=== PATIENT | female | born 1960 | race Caucasian/White ===

== ENCOUNTER 2025-08-08 06:47 | Inpatient (IN) | payer OTHER ==
[~2025-08-08] VITALS: Ht 149.9 cm; Wt 52.2 kg
[~2025-08-08 06:47] MED LIST: ATIVAN1 MG PO; CARVEDILOL6.25 MG PO; MOTRIN800 MG PO; PROZAC20 MG PO; ZOCOR20 MG PO
[2025-08-08 06:49] VITALS: BP 139/95
[2025-08-08] MEDS ORDERED: IOHEXOL 300 MG/ML 100 ML VIAL IV ONE (07:10)
[2025-08-08] MEDS ORDERED: Ondansetron Hydrochloride 4 MG/2 ML VIAL IV ONE (07:20)
[2025-08-08 07:25] LABS: MEAN CELL VOLUME 83.7 fl (81.0-99.0); MEAN CORPUSCULAR HGB 28.2 pg (27.0-31.0); MEAN PLATELET VOLUME 12.9 fl (9.6-12.3); NUCLEATED RED BLOOD CELL 0.0 % (0.0-0.0); NUCLEATED RED BLOOD CELL 0.0 10*3/uL (0.0-0.0); PLATELET COUNT AUTOMATED 388 10*3/uL (130-400); RED CELL DISTRI WIDTH 14.0 % (0-14.5)
[2025-08-08 07:42] LABS: BUN 10 mg/dl (9-23); SGPT/ALT 11 U/L (5-49)
[2025-08-08 07:43] LABS: MANUAL DIFF REFLEX YES
[2025-08-08 07:47] LABS: PLATELET SUFFICIENCY NORMAL (NORMAL)
[2025-08-08] MEDS ORDERED: POTASSIUM CHLO10 ME4 PO (12:22)
[2025-08-08] MEDS ORDERED: MAGNESIUM OXID400 MG PO (12:22)
[2025-08-08 12:45] VITALS: BP 122/80
[2025-08-08] MEDS ORDERED: DOCUSATE SOD100 MG PO (12:59)
[2025-08-08] MEDS ORDERED: TEMAZEPAM 15 MG CAP PO PRN (13:10)
[2025-08-08] MEDS ORDERED: BISACODYL 10 MG SUPP R PRN (13:10)
[2025-08-08] MEDS ORDERED: BISACODYL 5 MG TAB PO PRN (13:10)
[2025-08-08] MEDS ORDERED: ACETAMINOPHEN 325 MG TAB PO PRN (13:10)
[2025-08-08] MEDS ORDERED: Ondansetron Hydrochloride 4 MG/2 ML VIAL IV PRN (13:10)
[2025-08-08] MEDS ORDERED: POTASSIUM CHLORIDE 20 MEQ TAB PO ONE (13:30)
[2025-08-08] MEDS ORDERED: Acetaminophen/Oxycodone 5 MG/325 MG TABLET PO PRN (13:35)
[2025-08-08] MEDS ORDERED: LORazepam 1 MG TAB PO SCH (14:00)
[2025-08-08 16:00] VITALS: BP 107/42; BP 109/61
[2025-08-08] MEDS ORDERED: DOCUSATE SODIUM 100 MG CAP PO SCH (18:00)
[2025-08-08 20:00] VITALS: BP 112/77
[2025-08-09] VITALS: BP 118/86
[2025-08-09 06:19] LABS: MEAN CELL VOLUME 86.5 fl (81.0-99.0); MEAN CORPUSCULAR HGB 28.9 pg (27.0-31.0); MEAN PLATELET VOLUME 12.9 fl (9.6-12.3); NUCLEATED RED BLOOD CELL 0.0 % (0.0-0.0); NUCLEATED RED BLOOD CELL 0.0 10*3/uL (0.0-0.0); PLATELET COUNT AUTOMATED 353 10*3/uL (130-400); RED CELL DISTRI WIDTH 13.9 % (0-14.5)
[2025-08-09 06:21] LABS: BUN 9 mg/dl (9-23); LDL CHOLESTEROL 65 mg/dL (9-159); SGPT/ALT 114 U/L (5-49)
[2025-08-09 06:47] LABS: ACT PARTIAL THROMBO TIME 28.2 SECONDS (20.0-32.1)
[2025-08-09 07:12] LABS: MANUAL DIFF REFLEX YES
[2025-08-09 07:22] LABS: PLATELET SUFFICIENCY NORMAL (NORMAL)
[2025-08-09] MEDS ORDERED: OXYCODONE HCL (IR) 5 MG TAB PO PRN (07:55)
[2025-08-09 08:00] VITALS: BP 126/87
[2025-08-09] MEDS ORDERED: SODIUM PHOSPHATE 30 MMOL in SODIUM CHLORIDE 0.9% 500 ML IV ONE (08:30)
[2025-08-09] MEDS ORDERED: CARVEDILOL 6.25 MG TAB PO SCH (10:00)
[2025-08-09] MEDS ORDERED: SIMVASTATIN 20 MG TAB PO SCH (10:00)
[2025-08-09] MEDS ORDERED: POTASSIUM CHLORIDE 10 MEQ TAB PO SCH (10:00)
[2025-08-09] MEDS ORDERED: MAGNESIUM OXIDE 400 MG TAB PO SCH (10:00)
[2025-08-09 12:00] VITALS: BP 112/71
[2025-08-09 16:00] VITALS: BP 111/75
[2025-08-09 20:00] VITALS: BP 119/80
[2025-08-09] MEDS ORDERED: IOHEXOL 300 MG/ML 100 ML VIAL IV ONE (22:05)
[2025-08-09] MEDS ORDERED: IOHEXOL 300 MG/ML 100 ML VIAL ONE (22:31)
[2025-08-09] MEDS ORDERED: LACTULOSE 20 GM/30 ML UDC PO SCH (23:10)
[2025-08-10] MEDS ORDERED: Promethazine Hydrochloride 25 MG TAB PO ONE (00:40)
[2025-08-10 06:37] LABS: MEAN CORPUSCULAR HGB 27.7 pg (27.0-31.0); MEAN PLATELET VOLUME 13.3 fl (9.6-12.3); NUCLEATED RED BLOOD CELL 0.0 % (0.0-0.0); NUCLEATED RED BLOOD CELL 0.0 10*3/uL (0.0-0.0); PLATELET COUNT AUTOMATED 313 10*3/uL (130-400); RED CELL DISTRI WIDTH 14.1 % (0-14.5)
[2025-08-10 06:57] LABS: BUN 11 mg/dl (9-23); SGPT/ALT 95 U/L (5-49)
[2025-08-10 07:09] LABS: MANUAL DIFF REFLEX YES; MEAN CELL VOLUME 83.4 fl (81.0-99.0)
[2025-08-10 07:14] LABS: PLATELET SUFFICIENCY NORMAL (NORMAL)
[2025-08-10 08:00] VITALS: BP 130/86
[2025-08-10 12:00] VITALS: BP 158/91
[2025-08-10] MEDS ORDERED: POTASSIUM CHLORIDE 20 MEQ TAB PO ONE (12:20)
[2025-08-10] MEDS ORDERED: Ondansetron Hydrochloride 4 MG/2 ML VIAL IV PRN (12:20)
[2025-08-10] MEDS ORDERED: SODIUM CHLORIDE 0.9% 1,000 ML IV ONE (12:20)
[2025-08-10] MEDS ORDERED: FOLIC ACID 1 MG TAB PO SCH (12:25)
[2025-08-10] MEDS ORDERED: Ondansetron Hydrochloride 4 MG/2 ML VIAL IV SCH (14:00)
[2025-08-10 16:00] VITALS: BP 131/78
[2025-08-10] MEDS ORDERED: LACTULOSE 20 GM/30 ML UDC PO SCH (18:00)
[2025-08-10] MEDS ORDERED: POTASSIUM CHLORIDE 20 MEQ TAB PO SCH (18:00)
[2025-08-10 20:00] VITALS: BP 146/80
[2025-08-11] VITALS: BP 142/78
[2025-08-11 06:19] LABS: MEAN CELL VOLUME 83.4 fl (81.0-99.0); MEAN CORPUSCULAR HGB 27.6 pg (27.0-31.0); MEAN PLATELET VOLUME 12.8 fl (9.6-12.3); NUCLEATED RED BLOOD CELL 0.0 % (0.0-0.0); NUCLEATED RED BLOOD CELL 0.0 10*3/uL (0.0-0.0); PLATELET COUNT AUTOMATED 270 10*3/uL (130-400); RED CELL DISTRI WIDTH 14.1 % (0-14.5)
[2025-08-11 06:22] LABS: MANUAL DIFF REFLEX YES
[2025-08-11 06:34] LABS: BUN 8 mg/dl (9-23); SGPT/ALT 58 U/L (5-49)
[2025-08-11 07:12] LABS: PLATELET SUFFICIENCY NORMAL (NORMAL)
[2025-08-11 08:00] VITALS: BP 160/88
[2025-08-11 08:44] LABS: MEAN CELL VOLUME 83.7 fl (81.0-99.0); MEAN CORPUSCULAR HGB 27.3 pg (27.0-31.0); MEAN PLATELET VOLUME 12.1 fl (9.6-12.3); NUCLEATED RED BLOOD CELL 0.0 % (0.0-0.0); NUCLEATED RED BLOOD CELL 0.0 10*3/uL (0.0-0.0); PLATELET COUNT AUTOMATED 264 10*3/uL (130-400); RED CELL DISTRI WIDTH 14.0 % (0-14.5)
[2025-08-11 08:46] LABS: MANUAL DIFF REFLEX YES
[2025-08-11 09:05] LABS: PLATELET SUFFICIENCY NORMAL (NORMAL)
[2025-08-11 12:00] VITALS: BP 130/83
[2025-08-11 16:00] VITALS: BP 158/82
[2025-08-11 20:00] VITALS: BP 156/95
[2025-08-12] VITALS: BP 158/92
[2025-08-12 06:16] LABS: MEAN CELL VOLUME 85.7 fl (81.0-99.0); MEAN CORPUSCULAR HGB 28.6 pg (27.0-31.0); MEAN PLATELET VOLUME 12.3 fl (9.6-12.3); NUCLEATED RED BLOOD CELL 0.0 % (0.0-0.0); NUCLEATED RED BLOOD CELL 0.0 10*3/uL (0.0-0.0); PLATELET COUNT AUTOMATED 209 10*3/uL (130-400); RED CELL DISTRI WIDTH 13.8 % (0-14.5)
[2025-08-12 06:19] LABS: MANUAL DIFF REFLEX YES
[2025-08-12 06:36] LABS: BUN 8 mg/dl (9-23); SGPT/ALT 41 U/L (5-49)
[2025-08-12 08:00] VITALS: BP 147/86
[2025-08-12 08:20] LABS: PLATELET SUFFICIENCY NORMAL (NORMAL)
[2025-08-12 12:00] VITALS: BP 139/89
[2025-08-12 16:00] VITALS: BP 144/84
[2025-08-12 20:00] VITALS: BP 119/81
[2025-08-13] VITALS: BP 140/86
[2025-08-13 06:10] LABS: MEAN CELL VOLUME 85.3 fl (81.0-99.0); MEAN CORPUSCULAR HGB 27.5 pg (27.0-31.0); MEAN PLATELET VOLUME 12.4 fl (9.6-12.3); NUCLEATED RED BLOOD CELL 0.0 % (0.0-0.0); NUCLEATED RED BLOOD CELL 0.0 10*3/uL (0.0-0.0); PLATELET COUNT AUTOMATED 191 10*3/uL (130-400); RED CELL DISTRI WIDTH 13.8 % (0-14.5)
[2025-08-13 06:27] LABS: MANUAL DIFF REFLEX YES
[2025-08-13 07:15] LABS: BASOPHILS 1 % (0-1); BUN 7 mg/dl (9-23); LDH 511 U/L (120-246); PLATELET SUFFICIENCY NORMAL (NORMAL)
[2025-08-13 08:00] VITALS: BP 132/86
[2025-08-13 12:00] VITALS: BP 131/85
[2025-08-13] MEDS ORDERED: Potassium Bicarbonate/Potass 25 MEQ TAB PO ONE (12:00)
[2025-08-13] MEDS ORDERED: PANTOPRAZOLE SO40 MG PO (12:59)
[2025-08-13] MEDS ORDERED: POTASSIUM CHLO20 ME3 PO ×2 (12:59)
[2025-08-13] MEDS ORDERED: OXYCODONE HCL5 MG PO (12:59)
[2025-08-13] MEDS ORDERED: ATIVAN1 MG PO (12:59)
[2025-08-20] MEDS ORDERED: VITAMIN D3125 MC1 PO (08:58)
[2025-08-20] MEDS ORDERED: MULTI-VITAMIN1 EAC1 PO (08:59)
== END 2025-08-13 14:00 | DRG 530 ==
LOC: ED 06:47 → 5E 11:54 → EDHOLD 11:54 → 5E 12:30
PROVIDERS: Internal Medicine; Student in an Organized Health Care Education/Training Program; ADMIT Internal Medicine; ATTEND Internal Medicine
DX: C55 Malignant neoplasm of uterus, part unspecified (principal); E43 Unspecified severe protein-calorie malnutrition; C78.89 Secondary malignant neoplasm of other digestive organs; C79.82 Secondary malignant neoplasm of genital organs; E83.51 Hypocalcemia; R62.7 Adult failure to thrive; E88.09 Other disorders of plasma-protein metabolism, not elsewhere classified; E83.39 Other disorders of phosphorus metabolism; C54.1 Malignant neoplasm of endometrium; D64.9 Anemia, unspecified; C56.9 Malignant neoplasm of unspecified ovary; E87.6 Hypokalemia; C16.9 Malignant neoplasm of stomach, unspecified; I10 Essential (primary) hypertension; D72.810 Lymphocytopenia; Z66 Do not resuscitate; E53.8 Deficiency of other specified B group vitamins; R73.9 Hyperglycemia, unspecified; F17.210 Nicotine dependence, cigarettes, uncomplicated; Z82.49 Family history of ischemic heart disease and other diseases of the circulatory system; Z79.899 Other long term (current) drug therapy; I25.2 Old myocardial infarction; Z68.23 Body mass index [BMI] 23.0-23.9, adult